=== PATIENT | female | born 1950 | race Caucasian/White ===

== ENCOUNTER → 2020-08-11 | Outpatient (CLI) | payer MEDICARE, OTHER | LOC: CARD 09:30 | PROVIDERS: ATTEND Internal Medicine Cardiovascular Disease | DX: I51.7 Cardiomegaly (principal); I35.8 Other nonrheumatic aortic valve disorders | CPT/HCPCS: 93306 ==

== ENCOUNTER → 2020-08-12 | Outpatient (CLI) | payer MEDICARE ==
[~2020-08-12] VITALS: Ht 162 cm; Wt 118.0 kg
[~2020-08-12] MED LIST: CATHETER FLUSH 10 ML SYR IV PRN; REGADENOSON 0.4 MG/5 ML SYR (LEXISCAN) IV ONE
[2020-08-12 13:36] VITALS: BP 146/84
--- NOTE | 2020-08-12 16:18 | Cardiology Stress Test Report ---
Stress Test Report Date of Procedure/Referring: Date of Procedure: Aug 12, 2020 PCP James Wilcox Jr, MD Admitting Physician Indications: Abnormal ECG. Baseline Heart Rate: 78 Baseline Blood Pressure: Blood Pressure Systolic: 146 Blood Pressure Diastolic: 84 Baseline Vitals Vital Signs Date Time Temp Pulse Resp B/P (MAP) Pulse Ox O2 Delivery O2 Flow Rate FiO2 08/12/20 13:36 76 18 146/84 (104) 99 Room Air Baseline EKG: Baseline EKG: Sinus rhythm with low voltage in the precordial leads. Summary After explaining the procedure to the patient, she signed a consent and then brought to the stress nuclear laboratory. STRESS TEST PROCEDURE: The patient was administered 0.4 mg of intravenous Lexiscan. The patient was subsequently administered the stress dose of nuclear isotope. The resting heart rate was 78 bpm and the peak heart rate was 95 bpm. The resting blood pressure was 146/84 mmHg and the minimum blood pressure was 122/86 mmHg. This represents a normal heart rate and blood pressure response to Lexiscan. The test was stopped due to the protocol. There was no chest discomfort during the test. There were isolated premature ventricular complexes during the test. There were no electrocardiogram changes during the test. NUCLEAR PROCEDURE: The patient was administered 9.8 mCi of technetium 99m Myoview at rest for the rest images. The patient was subsequently administered 29.7 mCi of intravenous technetium 99m Myoview at peak stress for the stress images. Following a short wait after each injection, imaging was obtained. The images were subsequently processed and reformatted in the usual views. Gated imaging was obtained. There was a mild degree of gastrointestinal and breast attenuation artifact. NUCLEAR RESULTS: There was normal myocardial perfusion in all segments, other than breast attenuation artifact, without evidence of infarction or ischemia. There was normal left ventricular chamber size with an end-diastolic volume of 62 mL and an end-systolic volume of 17 mL. There was no evidence of transient ischemic dilatation. The TID ratie was 1.1. There was normal wall motion in all segments with a calculated ejection fraction of 73%. IMPRESSION: 1. Normal heart rate and blood pressure response to Lexiscan. 2. There was no chest discomfort during the test. 3. There were isolated premature ventricular complexes during the test. 4. There were no electrocardiogram changes during the test. 5. There was normal myocardial perfusion in all segments, other than breast attenuation artifact, without evidence of infarction or ischemia. 6. There was normal wall motion in all segments with a calculated ejection fraction of 73%. JAMES WILCOX JR, MD Aug 12, 2020 16:18
== END ==
LOC: CARD 12:30
PROVIDERS: ATTEND Internal Medicine Cardiovascular Disease
DX: R94.31 Abnormal electrocardiogram [ECG] [EKG] (principal)
CPT/HCPCS: 78452; 93017; A9502